=== PATIENT | male | born 1940 | race Caucasian/White ===

== ENCOUNTER → 2017-12-12 14:35 | Outpatient (CLI) | payer MEDICARE, OTHER, SELFPAY ==
[2017-12-12 15:43] LABS: Alanine Aminotransferase 51 IU/L (21-72); Albumin 4.6 g/dL (3.5-5.0); Albumin Globulin Ratio 1.4 (1.0-2.8); Alkaline Phosphatase 63 U/L (38-126); Aspartate Aminotransferase 47 IU/L (17-59); BUN Creatinine Ratio 31.1 (6-22); Bilirubin Total 1.1 mg/dL (0.2-1.3); Calcium 9.2 mg/dL (8.4-10.2); Estimated Glomerular Filt Rate > 60.0 mL/min (>60); Globulin 3.2 g/dL (1.7-4.1); Glucose 108 mg/dL (80-110); HEMOLYSIS < 15 (0-50); Potassium 4.3 mmol/L (3.4-5.1); Sodium 137 mmol/L (137-145); Total Protein 7.8 g/dL (6.3-8.2)
[2017-12-12 19:39] LABS: Add Manual Diff / Slide Review NO; Eosinophils Percent Auto 4.3 % (2-4); Hematocrit 47.1 % (41-53); Hemoglobin 15.9 g/dL (13.5-17.5); Lymphocytes Percent Auto 21.1 % (25-40); Mean Corpuscular HGB Conc 33.8 % (30-36); Mean Corpuscular Hemoglobin 28.7 PG (26-34); Monocytes Percent Auto 10.6 % (3-14); Neutrophils Absolute Auto 5200 /uL (3000-5900); Red Blood Cell Count 5.54 X10^6/uL (4.5-5.9); Red Cell Distribution Width 13.6 % (11.6-14.8); White Blood Cell Count 8.2 X10^3/uL (4.5-11.0)
[2017-12-12 19:47] LABS: Platelet Count 112 X10^3/uL (150-400)
== END ==
PROVIDERS: Family Provider Family Medicine; PCP Family Medicine; Visit Provider Internal Medicine Hematology & Oncology
DX: R91.1 Solitary pulmonary nodule (principal)
CPT/HCPCS: 36415; 80053; 85025

== ENCOUNTER → 2018-03-05 07:38 | Outpatient (CLI) | payer MEDICARE, OTHER, SELFPAY ==
[2018-03-05 08:40] LABS: BUN Creatinine Ratio 23.3 (6-22); Blood Urea Nitrogen 21 mg/dL (9-20); Estimated Glomerular Filt Rate > 60.0 mL/min (>60)
== END ==
PROVIDERS: PCP Family Medicine; Visit Provider Internal Medicine Hematology & Oncology
DX: R91.1 Solitary pulmonary nodule (principal); Z85.72 Personal history of non-Hodgkin lymphomas
CPT/HCPCS: 36415; 82565; 84520

== ENCOUNTER → 2018-03-06 07:50 | Outpatient (CLI) | payer MEDICARE, OTHER, SELFPAY ==
[2017-12-19 13:24] VITALS: TEMP 36.6
--- NOTE | 2018-03-06 08:19 | DI.CT.S_ITS ---
PROCEDURE: CT CHEST W CON INDICATIONS: HISTORY OF NON-HODGKINS LYMPHOMA TECHNIQUE: After the administration of intravenous contrast, 5 mm thick sections acquired from the pulmonary apices to the posterior costophrenic angles. 7 mm thick coronal and sagittal MIP reformats were acquired. For radiation dose reduction, the following was used: automated exposure control, adjustment of mA and/or kV according to patient size. COMPARISON: [facility], CR, CHEST 2 VIEW, 08/30/2017, 10:43. [facility], CT, CHEST/ABDOMEN WITHOUT CONTRAST, 11/19/2017, 14:15. [facility], NM, NM PET CT FUSION SKULL 2 THIGH, 12/12/2017, 15:59. FINDINGS: Image quality: Excellent. Lungs and pleura: Centrilobular and bullous emphysema is again noted. Multiple pulmonary nodules are reidentified bilaterally, these showing no abnormal tracer activity on prior pet imaging. The dominant nodule within the lingula is unchanged, measuring 9 mm in AP dimension. Other nodules including several in the right hemithorax are as previously described and measured, remaining unchanged. No new nodules are evident. No acute air space opacities. No pleural effusions or pneumothorax. Central and peripheral airways are patent and normal in caliber. Mediastinum: Heart size is normal. Coronary artery calcifications. No pericardial effusion. No mediastinal or hilar adenopathy by size criteria. Thoracic aorta and central pulmonary arteries are normal in size. Esophagus is normal in caliber. Small hiatal hernia. Bones and chest wall: Median sternotomy and CABG. No suspicious bony lesions. No vertebral body compression fractures. No axillary or supraclavicular adenopathy by size criteria. Thyroid gland appears normal in size. Abdomen: Visualized upper abdominal solid organs appear normal. Upper abdominal bowel loops are normal in caliber. Gallstone is present, no inflammatory changes. Generalized fatty infiltration of the liver. No adrenal nodules. IMPRESSION: 1. Moderately severe emphysema. 2. Multiple pulmonary nodules, benign by PET imaging remain unchanged in size from initial exam. Additional 6-[address] surveillance is recommended to exclude indolent neoplasms. 3. Atherosclerosis, cholelithiasis, hiatal hernia, atherosclerosis and hepatic steatosis again noted. Dictated by: José Miguel Turcios M.D. on 03/06/2018 at 8:45 Approved by: José Miguel Turcios M.D. on 03/06/2018 at 8:59
== END ==
PROVIDERS: Family Provider Family Medicine; PCP Family Medicine; Visit Provider Internal Medicine Hematology & Oncology
DX: R91.8 Other nonspecific abnormal finding of lung field (principal); Z85.72 Personal history of non-Hodgkin lymphomas; J43.9 Emphysema, unspecified; K44.9 Diaphragmatic hernia without obstruction or gangrene; K80.20 Calculus of gallbladder without cholecystitis without obstruction; K76.0 Fatty (change of) liver, not elsewhere classified; I25.10 Atherosclerotic heart disease of native coronary artery without angina pectoris
CPT/HCPCS: 71260; Q9967

== ENCOUNTER → 2018-03-25 07:11 | Outpatient (CLI) | payer MEDICARE, OTHER, SELFPAY ==
[2018-03-25 09:33] LABS: Cholesterol 119 mg/dL (140-199); HDL Cholesterol 44 mg/dL (40-60); LDL Cholesterol Calculated 47 mg/dL (<100); Triglycerides 141 mg/dL (35-150)
== END ==
PROVIDERS: PCP Family Medicine; Visit Provider Family Medicine
DX: E78.00 Pure hypercholesterolemia, unspecified (principal)
CPT/HCPCS: 36415; 80061

== ENCOUNTER → 2018-08-26 08:07 | Outpatient (CLI) | payer MEDICARE, OTHER, SELFPAY ==
--- NOTE | 2018-08-26 | DI.ECHO.S_ITS ---
[facility] +---------+ : : [address] : : : : [address] : : : : Phone: [phone] Echocardiogram Report + + :Name: MARLINE GOFF Study Date: 08/26/2018 Height: 73 in : :[facility] Exam Location: IS; Weight: 214 lb : : Gender: Male BSA: 2.2 m2 : :: 1940 Age: 78 yrs BP: 122/62 mmHg: :Reason For Study: CARDIOMYOPATHY : :Ordering Physician: Hattie : :Adin Aguirre Performed By: Estefania Rosa : :Referring: HATTIE STEWART : + + Interpretation Summary Normal sinus rhythm with occasional PVC's. Mildly dilated LV; there is limited endocardial visualization. only 7 out of 17 segments are visualized. There is basal anteroseptal, mid-anteroseptal and mid-anterior akinesis; mid-inferoseptal severe hypokinesis. There is basal inferolateral and mid-inferolateral hypokinesis. Best motion is demonstrated by mid-inferior segment, which is only mildly hypokinetic. Estimatedf EF is 30-35%. Stage II diastolic dysfunction. Mild LA enlargement; otherwise normal chamber sizes. No significant valvular abnormalities. Compared to prior study 05/07/2017 no significant changes have occurred. Procedure: A two-dimensional transthoracic echocardiogram with color flow and Doppler was performed. The study quality was technically adequate. Comparison is made with the echocardiogram of 05/07/17. There has been no significant change since the previous study. The patient was in normal sinus rhythm during the exam. The patient had occasional PVCs during the exam. Left Ventricle: The left ventricle is moderately dilated. There is normal left ventricular wall thickness. There is no thrombus. Left ventricular systolic function is severely reduced. Left ventricular ejection fraction is estimated to be 30 +/- 5%. Right Ventricle: The right ventricle is normal in size and function. Atria: The left atrium is moderately dilated. Right atrial size is normal. There is no Doppler evidence for an interatrial shunt. Mitral Valve: The mitral valve is normal. There is trace mitral regurgitation. Aortic Valve: The aortic valve is trileaflet. There is mild aortic valve sclerosis. The aortic valve opens well. There is no aortic regurgitation. Tricuspid Valve: The tricuspid valve is normal. There is trace tricuspid regurgitation. The right ventricular systolic pressure is estimated to be at least 25 mmHg based on an estimated right atrial pressure of 3 mm Hg. Pulmonic Valve: The pulmonic valve is not well seen, but is grossly normal. There is a trace or physiologic amount of pulmonic regurgitation. Great Vessels: The aortic root is normal size. The ascending aorta is normal in size. The aortic arch is normal in size. The pulmonary is not well visualized. The IVC is of normal diameter and collapses greater than 50% with a sniff. This suggests a low right atrial pressure of 3 mm Hg. Pericardium/ Pleura There is no pericardial effusion. There is no pleural effusion. MMode/2D Measurements & Calculations LVIDd: 6.5 cm LVOT diam: 2.5 cm LVIDs: 5.0 cm Ao root diam: 3.6 cm FS: 22.9 % asc Aorta Diam: 3.3 cm EPSS: 1.4 cm Ao Arch Diam (Prox Trans): 2.8 cm IVSd: 0.55 cm LVPWd: 0.93 cm LV raevalo. diameter/BSA (cm/m^2): 2.9 LV sys. diameter/BSA (cm/m^2): 2.3 LA A2 area: 24.7 cm2 RA long axis: 5.2 cm LA A4 area: 30.9 cm2 RA area: 19.5 cm2 LA length (vol): 6.3 cm RA vol: 62.6 ml LA vol: 103.3 ml RA : 28.3 ml/m2 LA vol index: 46.6 ml/m2 IVC diam: 1.3 cm RVD1 (basal): 4.5 cm RVD2 (mid): 3.6 cm TAPSE: 1.7 cm Doppler Measurements & Calculations Ao V2 max: 123.5 cm/sec LVOT Max Farzad: 64.2 cm/sec Ao V2 mean: 85.6 cm/sec LV V1 max P.7 mmHg Ao max P.1 mmHg LV V1 VTI: 14.0 cm Ao mean P.3 mmHg PANKAJ(I,D): 3.6 cm2 Ao V2 VTI: 19.9 cm PANKAJ(V,D): 2.6 cm2 sev ratio: 0.70 PANKAJ indexed to BSA (cm^2/m^2): 1.6 MV E max farzad: 84.0 cm/sec TR max farzad: 233.4 cm/sec MV A max farzad: 114.8 cm/sec TR max P.8 mmHg MV E/A: 0.73 PA V2 max: 86.7 cm/sec Med Peak E' Farzad: 5.5 cm/sec PA V2 mean: 58.5 cm/sec E/E' med: 15.3 PA mean P.5 mmHg Lat Peak E' Farzad: 10.4 cm/sec PA pr(Accel): 29.1 mmHg E/E' lat: 8.1 E/e' average: 11.7 MV dec time: 0.17 sec SV(LVOT): 70.9 ml Reading Physician:09:13 PM
== END ==
PROVIDERS: Family Provider Student in an Organized Health Care Education/Training Program; PCP Student in an Organized Health Care Education/Training Program; Visit Provider Hospitalist
DX: I35.8 Other nonrheumatic aortic valve disorders (principal); I42.9 Cardiomyopathy, unspecified; I49.3 Ventricular premature depolarization
CPT/HCPCS: 93306

== ENCOUNTER → 2018-09-13 08:49 | Outpatient (CLI) | payer MEDICARE, OTHER, SELFPAY ==
--- NOTE | 2018-09-20 15:31 | PM.PFT.1 ---
Pulmonary Function Test Referral & Results Date Patient Seen: 09/13/18 Requesting provider: Mayank Oakley Indication: [id number] Results: The spirometry demonstrates an FVC of 4.54 L which is 96% of predicted. The FEV1 was measured at 2.63 L which is 77% of predicted. The FEV1/FVC ratio was 58 which is 80% of predicted. Following the administration of bronchodilator there was a 26% improvement in FEF 25-75%. Lung volumes show an SVC of 4.54 L which is 92% of predicted. The diffusing capacity was measured at 19.05 which is 52% of predicted. No hemoglobin value was provided, so no correction for potential anemia could be made, if appropriate. The maximum voluntary ventilation was normal Interpretation: This study demonstrates perhaps mild obstructive lung disease based on reduction FEV1 and FEV1/FVC ratio. There was evidence of minimal improvements particularly in small airway flow after bronchodilator based on the improvement in FEF 25-75% There is also mild to moderate reduction in diffusing capacity suggesting an element of disease at the capillary alveolar level Clinical correlation suggested
== END ==
PROVIDERS: Family Provider Student in an Organized Health Care Education/Training Program; PCP Student in an Organized Health Care Education/Training Program; Visit Provider Hospitalist
DX: J43.9 Emphysema, unspecified (principal); R06.09 Other forms of dyspnea
CPT/HCPCS: 94060; 94726; 94729

== ENCOUNTER → 2018-10-28 10:51 | Outpatient (CLI) | payer MEDICARE, OTHER, SELFPAY ==
--- NOTE | 2018-10-28 10:57 | DI.CT.S_ITS ---
PROCEDURE: CT CHEST WO CON INDICATIONS: surveillance TECHNIQUE: Noncontrast 5 mm thick sections acquired from the pulmonary apices to the posterior costophrenic angles. 7 mm thick coronal and sagittal MIP reformats were then acquired. For radiation dose reduction, the following was used: automated exposure control, adjustment of mA and/or kV according to patient size. COMPARISON: Outside Facility, , CT THORAX/ABDOMEN/PELVIS WITH CONTRAST, 07/19/2015, 10:39. [facility], CT, CHEST/ABDOMEN WITHOUT CONTRAST, 11/19/2017, 14:15. [facility], CT, CT CHEST W CON, 03/06/2018, 8:03. FINDINGS: Image quality: Excellent. Lungs and pleura: No acute air space opacities. There is severe COPD with chronic interstitial prominence. Areas of scattered bullous emphysema can be seen. No pneumonia found. Previously present scattered pulmonary nodules bilaterally, right greater than left, are stable over time from the initial available comparison study describing these in detail 11/19/17. The largest nodule measures 9-10 mm lingular segment left upper lobe. No pleural effusions or pneumothorax. Central and peripheral airways are patent and normal in caliber. Mediastinum: Heart size is normal. No pericardial effusion. No mediastinal adenopathy by size criteria. Thoracic aorta and central pulmonary arteries are normal in size. Esophagus is normal in caliber. No hiatal hernia. Bones and chest wall: No suspicious bony lesions. No vertebral body compression fractures. No axillary or supraclavicular adenopathy by size criteria. Thyroid gland appears normal. Abdomen: Visualized upper abdominal solid organs and bowel loops appear normal in the absence of contrast. IMPRESSION: No globe changer time, severe COPD with interstitial prominence. Scattered pulmonary nodules are again seen, small in size and without globe changer time with the largest measuring approximately 9-10 mm lingular segment left upper lobe. Prior PET/CT scanning shows no abnormal isotope uptake, having been performed 12/12/17. The largest nodule, lingular segment, was also present on a comparison CT from [facility], dated 07/19/15. Overall, benign etiology such as old granulomatous disease is the likely cause. Depending on the clinical status and prior smoking history it may be warranted to enroll this patient in yearly low dose CT scanning without contrast for lung carcinoma screening. Dictated by: Jacoby Zamarripa M.D. on 10/28/2018 at 11:36 Approved by: Jacoby Zamarripa M.D. on 10/28/2018 at 11:46
[2018-10-28 11:11] LABS: Add Manual Diff / Slide Review NO; Basophils Absolute Auto 100 /uL (0-100); Basophils Percent Auto 0.9 % (0-2); Eosinophils Absolute Auto 300 /uL (0-450); Eosinophils Percent Auto 3.3 % (2-4); Hematocrit 48.2 % (41-53); Hemoglobin 16.2 g/dL (13.5-17.5); Lymphocytes Absolute Auto 1600 /uL (1100-4500); Lymphocytes Percent Auto 19.2 % (25-40); Mean Corpuscular HGB Conc 33.7 % (30-36); Mean Corpuscular Hemoglobin 29.2 PG (26-34); Mean Corpuscular Volume 86.7 fL (80-100); Monocytes Absolute Auto 900 /uL (0-900); Monocytes Percent Auto 10.3 % (3-14); Neutrophils Absolute Auto 5500 /uL (1500-7000); Neutrophils Percent Auto 66.3 % (50-75); Platelet Count 152 X10^3/uL (150-400); Red Blood Cell Count 5.57 X10^6/uL (4.5-5.9); Red Cell Distribution Width 13.4 % (11.6-14.8); White Blood Cell Count 8.3 X10^3/uL (4.5-11.0)
[2018-10-28 11:28] LABS: Alanine Aminotransferase 42 IU/L (21-72); Albumin 4.6 g/dL (3.5-5.0); Albumin Globulin Ratio 1.3 (1.0-2.8); Alkaline Phosphatase 57 U/L (38-126); Aspartate Aminotransferase 36 IU/L (17-59); BUN Creatinine Ratio 24.4 (6-22); Bilirubin Total 0.8 mg/dL (0.2-1.3); Blood Urea Nitrogen 22 mg/dL (9-20); Calcium 9.4 mg/dL (8.4-10.2); Carbon Dioxide 22 mmol/L (22-32); Chloride 105 mmol/L (98-107); Estimated Glomerular Filt Rate > 60.0 mL/min (>60); Globulin 3.6 g/dL (1.7-4.1); Glucose 116 mg/dL (80-110); HEMOLYSIS < 15 (0-50); Lactate Dehydrogenase 465 U/L (313-618); Potassium 4.1 mmol/L (3.4-5.1); Sodium 139 mmol/L (137-145); Total Protein 8.2 g/dL (6.3-8.2)
[2018-10-28 11:44] LABS: Free T4, Direct Thyroxine 1.42 ng/dL (0.78-2.19)
[2018-10-28 11:58] LABS: Thyroid Stimulating Hormone 1.53 uIU/mL (0.47-4.68)
== END ==
PROVIDERS: Internal Medicine; Internal Medicine Hematology & Oncology; Family Provider Student in an Organized Health Care Education/Training Program; PCP Student in an Organized Health Care Education/Training Program; Visit Provider Nurse Practitioner Gerontology
DX: R91.8 Other nonspecific abnormal finding of lung field (principal); J44.9 Chronic obstructive pulmonary disease, unspecified; E03.9 Hypothyroidism, unspecified
CPT/HCPCS: 36415; 71250; 80053; 83615; 84439; 84443; 85025; Q9967

== ENCOUNTER 2018-12-14 07:53 | Emergency (ER) | payer MEDICARE, OTHER, SELFPAY ==
[2018-12-14 08:24] VITALS: BP 149/69; PULSE 89; RESP 16; TEMP 36.9; O2SAT 93; BMI 28.3
--- NOTE | 2018-12-14 09:02 | ED_ITS ---
HPI - Neck Pain/Injury General Chief Complaint: Neck Pain/Injury Stated Complaint: States stiff neck x4days Time Seen by Provider: 12/14/18 08:25 Source: patient and family Mode of arrival: ambulatory Limitations: no limitations History of Present Illness HPI Narrative: Patient is a 78-year-old male who presents with neck pain ongoing for last 4 days. He states that he [place] in the [employer] [place] a while digging up a bu sh. He is right-handed however he injured his right hand and was actually using his left hand today got a todd. His neck has progressively gotten worse she did not fall. He has no numbness tingling in his hands or his face. He has significant decreased range of motion flexion extension and rotation. He was seen by his PCP yesterday he received a shot of Toradol and methocarbamol which he says has not helped him at all. He slept with a heating pad on his neck all night he did not get much sleep. MD complaint: neck pain Place: home Quality: spasming Duration: constant Relieving factors: none Related Data Home Medications Medication Instructions Recorded Confirmed losartan 50 mg PO QDAY #0 tab 06/08/16 12/13/18 metoprolol succinate ER 25 mg 25 mg PO DAILY 08/19/18 12/13/18 tablet,extended release 24 hr aspirin 81 mg tablet,delayed 81 mg PO DAILY 09/26/18 12/13/18 release Previous Rx's Medication Instructions Recorded atorvastatin 80 mg tablet 80 mg PO HS #90 tab 03/20/18 lorazepam 1 mg tablet 1 mg PO BID-TID PRN #90 tab 09/26/18 levothyroxine 200 mcg tablet 200 mcg PO QAM #90 tab 12/03/18 methocarbamol 500 mg tablet 500 mg PO QID PRN #10 tab 12/13/18 diazepam [Valium] 5 mg PO Q12HR PRN #10 tab 12/14/18 tramadol 50 mg PO Q6H PRN #10 tab 12/14/18 Allergies Allergy/AdvReac Type Severity Reaction Status Date / Time adhesive tape [ADHESIVE TAPE] Allergy Severe rash and Verified 12/14/18 08:23 open weeping sores nitroglycerin [NITROGLYCERIN] Allergy Severe tachacardia Verified 12/14/18 08:23 Sulfa (Sulfonamide Allergy Severe unknown Verified 12/14/18 08:23 Antibiotics) [SULFA (SULFONAMIDE ANTIBIOTICS)] meperidine [From DEMEROL] Allergy Unknown projectile Verified 12/14/18 08:23 vomiting Review of Systems Review of Systems ROS Unobtainable: All systems reviewed & are unremarkable except as noted in HPI and below Constitutional Denies chills, Denies fever(s), Denies lethargy and Denies weakness Eyes Denies change in vision, Denies eye discharge, Denies irritation and Denies loss of vision ENT Ears, Nose, Mouth, and Throat: Reports neck pain Cardiovascular Denies chest pain, Denies irregular heart rhythm, Denies lightheadedness, Denies palpitations, Denies dyspnea, Denies dyspnea on exertion and Denies orthopnea Respiratory Denies cough, Denies dyspnea, Denies dyspnea on exertion and Denies wheezing Gastrointestinal Gastrointestinal: Denies abdominal pain, Denies change in bowel habits, Denies diarrhea, Denies nausea and Denies vomiting Genitourinary Denies hematuria, Denies flank pain, Denies urinary incontinence and Denies urinary urgency Musculoskeletal Reports muscle cramps, Reports neck pain and Denies numbness Integumentary/Breasts Denies pruritus, Denies erythema, Denies rash and Denies wounds Neurologic Denies loss of vision, Denies numbness and Denies weakness Endocrine Denies palpitations Allergic/Immunologic Denies wheezing [facility] Medical History COPD (chronic obstructive pulmonary disease) (Chronic) Essential hypertension (Chronic 06/08/16) Coronary artery disease involving [place] coronary artery of [place] heart without angina pectoris (Chronic 06/08/16) Lung nodule (Acute 09/06/17) History of non-Hodgkin's lymphoma (Resolved 06/08/16) Pure hypercholesterolemia (Chronic 06/08/16) Acquired hypothyroidism (Chronic 06/08/16) Primary insomnia (Chronic 06/08/16) Social History Smoking Status: Former smoker Social History Smoking Status: Former smoker Exam Initial Vital Signs Initial Vital Signs: Vital Signs Temperature 98.4 F 12/14/18 08:24 Pulse Rate 89 12/14/18 08:24 Respiratory Rate 16 12/14/18 08:24 Blood Pressure 149/69 H 12/14/18 08:24 Pulse Oximetry 93 12/14/18 08:24 GENERAL: Well-appearing, well-nourished and in no acute distress. NECK: Significant tenderness C1 through C5 for. Significant decreased range of motion flexion extension and rotation. Extremely tender to touch. CARDIOVASCULAR: peripheral pulses in tact, cap refill <2 sec RESPIRATORY: No respiratory distress, speaks in full sentences without difficulty EXTREMITIES: Normal range of motion, no clubbing or edema. Neurovascularly intact NEUROLOGICAL: Cranial nerves II through XII grossly intact. Normal gait and speech. pigment presser strength is equal bilaterally. sensation to soft touch equal bilaterally SKIN: Warm, dry, no petechiae, no rashes or lesions. Course Orders Ordered: Discontinued Medications Diazepam (Valium) 10 mg PO NOW ONE Stop: 12/14/18 09:03 Last Admin: 12/14/18 09:33 Dose: 10 mg Ketorolac Tromethamine (Toradol) 30 mg IM NOW ONE Stop: 12/14/18 09:03 Last Admin: 12/14/18 09:30 Dose: 30 mg Vital Signs - 8 hr 12/14/18 08:24 12/14/18 10:15 Temperature 98.4 F Pulse Rate 89 86 Respiratory Rate 16 16 Blood Pressure 149/69 H Blood Pressure [Right Arm] 115/71 Pulse Oximetry 93 94 MDM - Neck Pain/Injury MDM Narrative Medical decision making narrative: Patient denies any fall, pain is reproducible to palpation movement. He has no neurovascular deficits or weaknesses. I was able to do some myofascial release and trigger point release for him which did help some. He did not want any strong narcotics he does not like the way it makes him feel. He got a little relief with the Valium will switch is methocarbamol to Valium instead. Overall feeling better. Discharge Plan Departure Patient Disposition: Home Clinical Impression: Cervical paraspinal muscle spasm Strain of neck muscle Qualifiers: Encounter type: initial encounter Qualified Code(s): S16.1XXA - Strain of muscle, fascia and tendon at neck level, initial encounter Discharge Date/Time: 12/14/18 10:42 Interventions: ED Discharge Assessment Last Done: 12/14/18 10:42 Instructions: Neck Sprain, DI for Muscle Spasm Activity Restrictions/Additional Instructions: *You have been diagnosed with cervical muscle strain/muscle spasm *What to do: Increased movement as tolerated try some light stretching activities as tolerated. Heating pad. *Continue to take medications as directed -->Stop taking methocarbamol Tramadol 1 tablet every 6 hours needed for severe pain Ibuprofen 600 mg every 6-8 hours if needed for moderate pain Valium 5 mg every 12 hours if needed for muscle spasm *Follow up with your primary care provider in 2-3 days *Return to ER if you should have numbness tingling weakness in hand or face or any new, worsening or concerning symptoms CONTROLLED SUBSTANCE DISCHARGE (Narcotoic/benzodiazepine/Flexeril/Phenergan) 1. You have been prescribed narcotic medications, it does have acetaminophen/Tylenol/paracetamol in it so do not take extra Tylenol or Tylenol containing products TRAMADOL DOES NOT CONTAIN TYLENOL 2. Please understand that we cannot provide further refills of narcotics, benzodiazepines or controlled substances through the ED and her pain management will need to be through your provider. 3. While on these medications you cannot drive or operate heavy machinery. 4. You cannot sign legal documents or perform any duties such as this. 5. As long as you're taking opiate pain medications he should also be taking a stool softener such as Colace, Dulcolax, MiraLAX or prune juice, to help avoid constipation. Prescriptions: New tramadol 50 mg tablet 50 mg PO Q6H PRN (Reason: pain) Qty: 10 RF: 0 diazepam [Valium] 5 mg tablet 5 mg PO Q12HR PRN (Reason: muscle spasm) Qty: 10 RF: 0 No Action methocarbamol 500 mg tablet 500 mg PO QID PRN (Reason: muscle spasm) Qty: 10 RF: 0 losartan 50 MG tablet 50 mg PO QDAY Qty: 0 RF: 0 atorvastatin [Lipitor] 80 mg tablet 80 mg PO HS Qty: 90 RF: 2 metoprolol succinate 25 mg tablet extended release 24 hr 25 mg PO DAILY RF: 0 levothyroxine 200 mcg tablet 200 mcg PO QAM Qty: 90 RF: 1 aspirin 81 mg tablet,delayed release (DR/EC) 81 mg PO DAILY RF: 0 lorazepam 1 mg tablet 1 mg PO BID-TID PRN (Reason: dizziness) Qty: 90 RF: 2 Referrals: Tj Murphy MD [Primary Care Provider] -
[2018-12-14] MEDS: KETOROLAC 60 MG/2 ML VIAL 30 MG IM (09:30)
[2018-12-14] MEDS: diazePAM 5 MG TABLET 10 MG PO (09:33)
[2018-12-14 10:15] VITALS: BP 115/71; PULSE 86; RESP 16; O2SAT 94
--- NOTE | 2018-12-14 10:16 | PC.NURSE ---
pt reports improvement, more relaxed and pain level decrease.
== END 2018-12-14 10:42 | disposition home or self-care (01) ==
PROVIDERS: Emergency Provider Emergency Medicine; Family Provider Student in an Organized Health Care Education/Training Program; PCP Internal Medicine
DX: S16.1XXA Strain of muscle, fascia and tendon at neck level, initial encounter (principal)
CPT/HCPCS: 96372; 99282; 99283; J1885

== ENCOUNTER → 2019-02-03 08:33 | Outpatient (CLI) | payer MEDICARE, OTHER, SELFPAY ==
--- NOTE | 2019-02-03 | DI.MRI.S_ITS ---
PROCEDURE: MR ELBOW RT WO CON INDICATIONS: Strain of muscle, fascia and tendon TECHNIQUE: Axial and sagittal MR imaging of the right elbow was performed. COMPARISON: None. FINDINGS: Image quality: Limited, as coronal imaging was not able to be obtained. There also is motion artifact. Lateral structures: The lateral elbow ligaments are not adequately evaluated without coronal imaging. The common extensor tendon origin is also not adequately evaluated without coronal imaging, but appears to demonstrate increased signal. Medial structures: The ulnar collateral ligament is not adequately evaluated without coronal imaging. The overlying common flexor tendon is not adequately evaluated, but appears to be within normal limits. The ulnar nerve appears normal in size and signal within the cubital tunnel. Anterior structures: The brachialis tendon is intact and otherwise unremarkable. The distal biceps tendon demonstrates thickening and increased signal at its insertion onto the radial tuberosity. No bicipitoradial bursal fluid. The median and radial neurovascular bundles appear normal; no focal muscle atrophy to suggest nerve impingement. Posterior structures: The conjoint triceps tendon from the long and lateral heads appears intact. The medial head of the triceps tendon also appears normal, with direct muscle insertion onto the olecranon. No olecranon bursal fluid. Bone: No acute fracture, dislocation, or suspicious osseous lesion is evident. No significant degenerative changes are identified. There is no joint effusion. IMPRESSION: 1. Coronal imaging was unable to be obtained related to a scanner error, limiting the evaluation of the elbow. This particularly limits evaluation of the medial and lateral elbow ligaments and tendons. If there is clinical concern for pathology involving the structures, please send the patient back for additional imaging at no cost to the patient. 2. Biceps tendinopathy without significant tearing. Dictated by: Thong Baxter M.D. on 02/03/2019 at 13:50 Approved by: Thong Baxter M.D. on 02/03/2019 at 13:58
== END ==
PROVIDERS: PCP Internal Medicine; Visit Provider Orthopaedic Surgery
DX: S46.211A Strain of muscle, fascia and tendon of other parts of biceps, right arm, initial encounter (principal)
CPT/HCPCS: 73221

== ENCOUNTER → 2019-03-25 07:52 | Outpatient (CLI) | payer MEDICARE, OTHER, SELFPAY ==
[2019-03-25 10:00] LABS: BUN Creatinine Ratio 24.4 (6-22); Blood Urea Nitrogen 22 mg/dL (9-20); Calcium 9.4 mg/dL (8.4-10.2); Carbon Dioxide 25 mmol/L (22-32); Chloride 101 mmol/L (98-107); Estimated Glomerular Filt Rate > 60.0 mL/min (>60); Glucose 150 mg/dL (80-110); HEMOLYSIS < 15 (0-50); Potassium 4.3 mmol/L (3.4-5.1); Sodium 137 mmol/L (137-145)
== END ==
PROVIDERS: Family Provider Internal Medicine; PCP Internal Medicine; Visit Provider Hospitalist
DX: I25.5 Ischemic cardiomyopathy (principal)
CPT/HCPCS: 36415; 80048

== ENCOUNTER → 2019-07-22 11:21 | Outpatient (CLI) | payer MEDICARE, OTHER, SELFPAY ==
[2019-07-22 12:31] LABS: BUN Creatinine Ratio 27.8 (6-22); Blood Urea Nitrogen 25 mg/dL (9-20); Calcium 9.6 mg/dL (8.4-10.2); Carbon Dioxide 26 mmol/L (22-32); Chloride 103 mmol/L (98-107); Cholesterol 146 mg/dL (140-199); Estimated Glomerular Filt Rate > 60.0 mL/min (>60); Glucose 111 mg/dL (80-110); HDL Cholesterol 40 mg/dL (40-60); HEMOLYSIS < 15 (0-50); LDL Cholesterol Calculated 60 mg/dL (<100); Potassium 4.1 mmol/L (3.4-5.1); Sodium 139 mmol/L (137-145); Triglycerides 232 mg/dL (35-150)
== END ==
PROVIDERS: PCP Internal Medicine; Visit Provider Hospitalist
DX: I25.10 Atherosclerotic heart disease of native coronary artery without angina pectoris (principal); I25.5 Ischemic cardiomyopathy; Z95.1 Presence of aortocoronary bypass graft
CPT/HCPCS: 36415; 80048; 80061

== ENCOUNTER → 2020-03-04 11:17 | Outpatient (CLI) | payer MEDICARE, OTHER, SELFPAY ==
[2020-03-04 11:46] LABS: Add Manual Diff / Slide Review NO; Basophils Absolute Auto 100 /uL (0-100); Basophils Percent Auto 0.7 % (0-2); Eosinophils Absolute Auto 200 /uL (0-450); Eosinophils Percent Auto 3.1 % (2-4); Hemoglobin 15.4 g/dL (13.5-17.5); Lymphocytes Absolute Auto 1600 /uL (1100-4500); Lymphocytes Percent Auto 22.4 % (25-40); Mean Corpuscular HGB Conc 34.2 % (30-36); Mean Corpuscular Volume 84.9 fL (80-100); Monocytes Absolute Auto 800 /uL (0-900); Monocytes Percent Auto 10.4 % (3-14); Neutrophils Absolute Auto 4700 /uL (1500-7000); Neutrophils Percent Auto 63.4 % (50-75); Platelet Count 150 X10^3/uL (150-400); Red Cell Distribution Width 13.9 % (11.6-14.8); White Blood Cell Count 7.4 X10^3/uL (4.5-11.0)
[2020-03-04 12:24] LABS: Alanine Aminotransferase 39 IU/L (<50); Albumin 4.4 g/dL (3.5-5.0); Albumin Globulin Ratio 1.4 (1.0-2.8); Alkaline Phosphatase 56 U/L (38-126); Aspartate Aminotransferase 39 IU/L (17-59); BUN Creatinine Ratio 25.3 (6-22); Bilirubin Total 0.8 mg/dL (0.2-1.3); Blood Urea Nitrogen 23 mg/dL (9-20); Calcium 9.7 mg/dL (8.4-10.2); Carbon Dioxide 23 mmol/L (22-32); Chloride 105 mmol/L (98-107); Estimated Glomerular Filt Rate > 60.0 mL/min (>60); Globulin 3.1 g/dL (1.7-4.1); Glucose 126 mg/dL (80-110); HEMOLYSIS < 15 (0-50); Lactate Dehydrogenase 428 U/L (313-618); Potassium 4.2 mmol/L (3.4-5.1); Sodium 136 mmol/L (137-145); Total Protein 7.5 g/dL (6.3-8.2)
[2020-03-04 12:53] LABS: Thyroid Stimulating Hormone 1.02 uIU/mL (0.47-4.68)
== END ==
PROVIDERS: Internal Medicine; PCP Internal Medicine; Referring Provider Internal Medicine; Visit Provider Internal Medicine
DX: E03.9 Hypothyroidism, unspecified (principal); C83.30 Diffuse large B-cell lymphoma, unspecified site
CPT/HCPCS: 36415; 80053; 83615; 84439; 84443; 85025

== ENCOUNTER → 2020-05-04 15:36 | Outpatient (CLI) | payer MEDICARE, OTHER, SELFPAY ==
--- NOTE | 2020-05-04 | DI.ECHO.S_ITS ---
[facility]---------+ [facility] +---------+ : : [address] [address] : : : : [phone] : : : : Phone: [phone]+ Echocardiogram Report + + :Name: MARLINE GOFF Study Date: 05/04/2020 Height: 73 in : :[facility] Weight: 216 lb : : Gender: Male BSA: 2.2 m2 : :: 1940 Age: 80 yrs BP: 140/76 mmHg: :Reason For Study: Cardiomyopathy, Ischemic : :Ordering Physician: Hattie : :Adin Aguirre Performed By: Rachel Cavanaugh : :Referring: HATTIE STEWART : + + Interpretation Summary 1) Mildly enlarged LV with severely reduced systolic function (EF 25-30%). 2) Septum extending to the entire apical cap are akinetic. Rest of the LV is hypokinetic. 3) Normal right ventricular size and function. 4) No significant valvular abnormalities. 5) Compared to the Echo done 08/26/2018, no significant change. Procedure: A two-dimensional transthoracic echocardiogram with color flow and Doppler was performed. The study quality was technically difficult. A contrast injection of Definity was performed to improve assessment of LV function. The patient was in sinus rhythm with heart rates between 57-62 bpm during the exam. Left Ventricle: There is normal left ventricular wall thickness. The left ventricle is mildly dilated. The ejection fraction is estimated to be 25-30%. Septum extending to the entire apical cap are akinetic. Rest of the LV is hypokinetic. Diastolic parameters suggest a relaxation abnormality of the left ventricle, consistent with probable normal filling pressures. Right Ventricle: The right ventricle is normal in size and function. Atria: The left atrium is moderately dilated. Right atrial size is normal. There is no Doppler evidence for an interatrial shunt. Mitral Valve: The mitral valve is normal in structure and function. There is mild mitral annular calcification. There is no mitral regurgitation noted. Aortic Valve: The aortic valve is trileaflet. The aortic valve opens well. There is no aortic valve stenosis. No aortic regurgitation is present. Tricuspid Valve: The tricuspid valve is normal in structure and function. Pulmonary artery pressures cannot be estimated because of the lack of a measurable TR jet velocity but the IVC suggests a CVP of around 3 mmHg. There is trace tricuspid regurgitation. Pulmonic Valve: The pulmonic valve is not well visualized. There is no pulmonic valvular regurgitation. Great Vessels: The aortic root is normal size. The dimensions of the ascending aorta are normal. The IVC is of normal diameter and collapses greater than 50% with a sniff. This suggests a low right atrial pressure of 3 mm Hg. Pericardium/ Pleura There is no pericardial effusion. There is no pleural effusion. MMode/2D Measurements & Calculations LVIDd: 6.0 cm LVOT diam: 2.4 cm LVIDs: 5.3 cm Ao root diam: 3.5 cm FS: 12.3 % asc Aorta Diam: 3.3 cm EPSS: 1.8 cm Ao Arch Diam (Prox Trans): 3.2 cm IVSd: 0.81 cm LVPWd: 0.84 cm LV arevalo. diameter/BSA (cm/m^2): 2.7 LV sys. diameter/BSA (cm/m^2): 2.4 LA A2 area: 24.5 cm2 RA long axis: 5.4 cm LA A4 area: 21.5 cm2 RA area: 19.0 cm2 LA length (vol): 5.5 cm RA vol: 56.8 ml LA vol: 81.9 ml RA : 25.6 ml/m2 LA vol index: 36.8 ml/m2 IVC diam: 1.1 cm RVD1 (basal): 3.7 cm TAPSE: 1.8 cm Doppler Measurements & Calculations Ao V2 max: 131.0 cm/sec LVOT Max Farzad: 91.0 cm/sec Ao V2 mean: 94.0 cm/sec LV V1 max P.3 mmHg Ao max P.9 mmHg LV V1 VTI: 20.6 cm Ao mean P.9 mmHg PANKAJ(I,D): 2.8 cm2 Ao V2 VTI: 32.9 cm PANKAJ(V,D): 3.1 cm2 sev ratio: 0.63 PANKAJ indexed to BSA (cm^2/m^2): 1.3 MV E max farzad: 53.5 cm/sec PA V2 max: 110.0 cm/sec MV A max farzad: 110.6 cm/sec PA V2 mean: 68.7 cm/sec MV E/A: 0.48 PA mean P.3 mmHg Med Peak E' Farzad: 4.1 cm/sec PA pr(Accel): 41.3 mmHg E/E' med: 12.9 Lat Peak E' Farzad: 9.8 cm/sec E/E' lat: 5.4 E/e' average: 9.2 MV dec time: 0.28 sec SV(OT): 93.1 ml Reading Physician:02:57 PM
== END ==
PROVIDERS: PCP Internal Medicine; Referring Provider Hospitalist; Visit Provider Hospitalist
DX: I25.5 Ischemic cardiomyopathy (principal)
CPT/HCPCS: C8929; Q9957

== ENCOUNTER 2020-11-16 15:42 | Emergency (ER) | payer MEDICARE, OTHER, SELFPAY ==
[2020-11-16 15:43] VITALS: BP 165/79; PULSE 63; RESP 14; TEMP 36.8; O2SAT 97; BMI 28.6
--- NOTE | 2020-11-16 15:48 | DI.RAD.S_ITS ---
PROCEDURE: XR ANKLE RT MIN 3V INDICATIONS: rolled right ankle TECHNIQUE: Three views of the ankle were acquired. COMPARISON: None. FINDINGS: Bones: No fractures or dislocations. Ankle mortise is normally aligned. No suspicious bony lesions. Soft tissues: No tibiotalar joint effusion. Achilles tendon appears normal. IMPRESSION: Intact right ankle. Dictated by: Danielle Guardado M.D. on 11/16/2020 at 15:12 Approved by: Danielle Guardado M.D. on 11/16/2020 at 15:13
--- NOTE | 2020-11-16 19:25 | ED.LOWEXIN ---
HPI - Extremity Injury (Lower) General Chief Complaint: Extremity Injury, Lower Stated Complaint: pain, rt ankle injury Time Seen by Provider: 11/16/20 19:25 Source: patient Mode of arrival: Ambulatory Limitations: no limitations History of Present Illness HPI Narrative: Patient is a 80-year-old male with history of coronary artery disease who presents with right ankle pain. It started yesterday after walking through a neighbor's yd who had if leg stone in gravel. He said when the leg stone was not stable and it rolled and he rolled his ankle. He has been able to walk on it but it does hurt. He has some swelling over his right malleoli. He has been elevating and icing and using an Ok wrap and even ibuprofen. He denies any numbness tingling or weakness no knee pain or other injury. Related Data Home Medications Medication Instructions Recorded Confirmed aspirin 81 mg tablet,delayed 81 mg PO DAILY 09/26/18 03/08/20 release losartan 50 mg PO BID 02/17/20 03/08/20 metoprolol succinate 25 mg 25 mg PO BID tab 03/08/20 03/08/20 tablet,extended release 24 hr Previous Rx's Medication Instructions Recorded levothyroxine 200 mcg tablet 200 mcg PO DAILY #90 tab 05/24/20 lorazepam 1 mg tablet 1 mg PO TID PRN #90 tab 10/07/20 atorvastatin 80 mg tablet 80 mg PO HS #90 tab 10/12/20 Allergies Allergy/AdvReac Type Severity Reaction Status Date / Time adhesive tape [ADHESIVE TAPE] Allergy Severe rash and Verified 11/16/20 15:45 open weeping sores nitroglycerin [NITROGLYCERIN] Allergy Severe tachacardia Verified 11/16/20 15:45 Sulfa (Sulfonamide Allergy Severe unknown Verified 11/16/20 15:45 Antibiotics) [SULFA (SULFONAMIDE ANTIBIOTICS)] meperidine [From DEMEROL] Allergy Unknown projectile Verified 11/16/20 15:45 vomiting Review of Systems Review of Systems Narrative: GENERAL: Denies chills,fever HEENT: Denies throat pain RESPIRATORY: Denies dyspnea, cough, wheezing CARDIOVASCULAR: Denies chest pain, palpitations GASTROINTESTINAL: Denies nausea, vomiting MUSCULOSKELETAL: See HPI SKIN: No rash, no laceration, no pruritus NEUROLOGIC: Denies weakness, dizziness, headache, numbness 8 point review of systems is negative except for those stated above and HPI Patient History Medical History Acquired hypothyroidism (06/08/16) COPD (chronic obstructive pulmonary disease) Coronary artery disease involving [place] coronary artery of [place] heart without angina pectoris (06/08/16) Essential hypertension (06/08/16) History of non-Hodgkin's lymphoma (06/08/16) Lung nodule (09/06/17) Primary insomnia (06/08/16) Pure hypercholesterolemia (06/08/16) Social History Smoking Status: Former smoker Smoking Status: Former smoker alcohol intake frequency: 0-2 drinks per day Substance Use Type: does not use Exam Initial Vital Signs Initial Vital Signs: Vital Signs Temperature 98.3 F 11/16/20 15:43 Pulse Rate 63 11/16/20 15:43 Respiratory Rate 14 11/16/20 15:43 Blood Pressure 165/79 H 11/16/20 15:43 Pulse Oximetry 97 11/16/20 15:43 GENERAL: Alert pleasant 80-year-old male sitting in wheelchair CARDIOVASCULAR: peripheral pulses in tact, cap refill <2 sec RESPIRATORY: No respiratory distress, speaks in full sentences without difficulty EXTREMITIES: Normal range of motion, no clubbing or edema. Neurovascularly intact Right lower extremity swelling over right lateral malleoli distal pedal pulse intact Achilles intact no foot pain. No knee pain or fibular head pain NEUROLOGICAL: Cranial nerves II through XII grossly intact. Normal gait and speech. SKIN: Warm, dry, no petechiae, no rashes or lesions. Course Orders Ordered: ED Orders 11/16/20 15:48 XR ankle RT min 3V Stat Vital Signs Vital signs: Vital Signs - 8 hr 11/16/20 15:43 Temperature 98.3 F Pulse Rate 63 Respiratory Rate 14 Blood Pressure 165/79 H Pulse Oximetry 97 MDM - Extremity Injury (Lower) Imaging Data Extremity x-ray #1: Radiologist's Impression: PROCEDURE: XR ANKLE RT MIN 3V INDICATIONS: rolled right ankle TECHNIQUE: Three views of the ankle were acquired. COMPARISON: None. FINDINGS: Bones: No fractures or dislocations. Ankle mortise is normally aligned. No suspicious bony lesions. Soft tissues: No tibiotalar joint effusion. Achilles tendon appears normal. IMPRESSION: Intact right ankle. Dictated by: Danielle Guardado M.D. on 11/16/2020 at 15:12 Approved by: Danielle Guardado M.D. on 11/16/2020 at 15:13 Discharge Plan Departure Patient Disposition: Home Clinical Impression: Right ankle sprain Qualifiers: Encounter type: initial encounter Involved ligament of ankle: other ligament Qualified Code(s): S93.491A - Sprain of other ligament of right ankle, initial encounter Instructions: Ankle Sprain Activity Restrictions/Additional Instructions: *You have been diagnosed with right ankle sprain *What to do: At this time increase activity as tolerated may use cane crutch to help with walking. Elevate, ice 20-30 minutes at a time. Use Ok wrap if it seems to help *Continue to take medications as directed Ibuprofen 600 mg every 6-8 hours if needed for [id number] pain *Follow up with your primary care provider in 2-3 days *Return to ER if you should have increasing pain numbness or tingling or any new, worsening or concerning symptoms Prescriptions: No Action metoprolol succinate 25 mg tablet extended release 24 hr 25 mg PO BID RF: 0 levothyroxine 200 mcg tablet 200 mcg PO DAILY Qty: 90 RF: 1 lorazepam 1 mg tablet 1 mg PO TID PRN (Reason: dizziness or vertigo) Qty: 90 RF: 1 atorvastatin [Lipitor] 80 mg tablet 80 mg PO HS Qty: 90 RF: 1 aspirin 81 mg tablet,delayed release (DR/EC) 81 mg PO DAILY RF: 0 losartan 50 mg tablet 50 mg PO BID RF: 0 Referrals: Tj Murphy MD [Primary Care Provider] -
[2020-11-16 19:47] VITALS: BP 147/70; PULSE 59; O2SAT 97
== END 2020-11-16 19:48 | disposition home or self-care (01) ==
PROVIDERS: Emergency Provider Emergency Medicine; PCP Internal Medicine; Referring Provider Internal Medicine
DX: S93.491A Sprain of other ligament of right ankle, initial encounter (principal); W01.0XXA Fall on same level from slipping, tripping and stumbling without subsequent striking against object, initial encounter
CPT/HCPCS: 73610; 99281; 99283

== ENCOUNTER → 2021-06-13 09:30 | Outpatient (CLI) | payer MEDICARE, OTHER, SELFPAY ==
[2021-06-13 10:23] LABS: Hemoglobin A1C% w Est Avg Glu 6.1 % (4.0-6.0)
[2021-06-13 11:06] LABS: BUN Creatinine Ratio 25.8 (6-22); Blood Urea Nitrogen 24 mg/dL (9-20); Calcium 9.7 mg/dL (8.4-10.2); Carbon Dioxide 27 mmol/L (22-32); Chloride 102 mmol/L (98-107); Estimated Glomerular Filt Rate > 60.0 mL/min (>60); Glucose 118 mg/dL (80-110); HEMOLYSIS < 15 (0-50); Potassium 4.3 mmol/L (3.4-5.1); Sodium 140 mmol/L (137-145)
== END ==
PROVIDERS: PCP Internal Medicine; Referring Provider Internal Medicine; Visit Provider Internal Medicine
DX: C83.30 Diffuse large B-cell lymphoma, unspecified site (principal); R73.9 Hyperglycemia, unspecified; J44.9 Chronic obstructive pulmonary disease, unspecified
CPT/HCPCS: 36415; 80048; 83036

== ENCOUNTER → 2021-10-24 09:19 | Outpatient (CLI) | payer MEDICARE, OTHER, SELFPAY ==
[2021-10-24 12:37] LABS: COVID19 -Nasal RAPID Negative (Negative)
== END ==
PROVIDERS: PCP Internal Medicine; Visit Provider Family Medicine Sleep Medicine
DX: Z20.822 Contact with and (suspected) exposure to COVID-19 (principal)
CPT/HCPCS: 87635; C9803

== ENCOUNTER → 2021-10-26 08:29 | Outpatient (CLI) | payer MEDICARE, OTHER, SELFPAY ==
--- NOTE | 2021-10-26 | DI.NM.S_ITS ---
PROCEDURE: NM BLAS PERF SPECT R&S PHARM Rest and pharmacological stress myocardial perfusion SPECT with gated imaging and ejection fraction RADIOPHARMACEUTICAL: 11.9 mCi Tc-99m tetrafosmin IV at rest and 25.6 mCi Tc-99m tetrafosmin IV at peak effect of pharmacological stress. Gzs-ron-dhafuhlu was performed. INDICATIONS: Essential (primary) hypertension TECHNIQUE: Radiopharmaceutical was injected at peak stress test, and also at rest. SPECT images were obtained. SPECT myocardial perfusion images were displayed in short axis, horizontal long axis, and vertical long axis views. Gated images were reviewed using Zencoder software. COMPARISON: None. CARDIAC STRESS: A pharmacologic stress test was performed under the supervision of an attending staff, using an infusion of lexiscan 0.4mg IV X1. Hemodynamic data: There is normal blood pressure and heart rate response to pharmacologic stress. Symptoms: The patient denied anginal chest pain. Aminophylline: none EKG: Sinus rhythm with LBBB. Non-diagnostic ECG with lexiscan due to LBBB. Rare PVCs.. FINDINGS: Raw data: There is good myocardial uptake of radiotracer. No significant motion artifacts. Left ventricle function: Gated images demonstrate septal dyskinesis and apical cap akinesis. The inferior wall is severely hypokinetic. Distal anterior wall is hypokinetic. The basal to distal lateral wall has normal wall motion. No transient ischemic dilation; TID is 1.12 (normal less than 1.3). Left ventricle resting end diastolic volume is 212 mL. Left ventricle stress ejection fraction is 31%; normal range is above 45%. Myocardial perfusion: Severe fixed defects in the inferior wall, anterior wall, inferolateral wall and apical cap consistent with prior transmural infarction. Moderately intense fixed septal defect consistent with prior non-transmural infarction. The anterolateral wall has normal wall motion. No ischemia. No prone images obtained due to patient unable to lay on his stomach. IMPRESSION: Abnormal pharmaceutical nuclear stress test consistent with prior infarction. No ischemia. 1) Severe fixed defects in the inferior wall, anterior wall, inferolateral wall and apical cap consistent with prior transmural infarction. Moderately intense fixed septal defect consistent with prior non-transmural infarction. The anterolateral wall has normal wall motion. No ischemia. No prone images obtained due to patient unable to lay on his stomach. 2) Dilated left ventricle (resting EDV 212cc) with moderately severely reduced systolic function (EF post stress 31%). 3) ECG non-diagnostic due to baseline LBBB. 4) No angina during the study. 5) Compared to the nuclear stress test 01/01/2022, no significant change. Dictated by: Alex Van MD on 10/26/2021 at 16:29 Approved by: Alex Van MD on 10/26/2021 at 16:38
--- NOTE | 2021-10-26 | DI.ECHO.S_ITS ---
[facility] +---------+ [facility] +---------+ : : [address] : [address] [address] : : : : [phone] : : : : Phone: [phone]---------+ Echocardiogram Report + + :Name: MARLINE GOFF Study Date: 10/26/2021 Height: 73 in : :[facility] ReadingLocation: Weight: 217 lb : : Gender: Male BSA: 2.2 m2 : :: 1940 Age: 81 yrs BP: 133/76 mmHg: :Reason For Study: HYPERTENSION : :Ordering Physician: FEI, : :LEEANN Gilman Performed By: Rachel Cavanaugh : :Referring: LEEANN MORENO : + + Interpretation Summary The left ventricle is mild-moderately dilated. The ejection fraction is estimated to be 15-20%. The septum, inferior wall and apex are akinetic. The remaining fletcher are hypokinetic. Right ventricular systolic function is mildly reduced. The left atrium is mildly dilated. No significant valvular abnormalities. Pulmonary artery pressures cannot be estimated because of the lack of a measurable TR jet velocity. Compared to the prior study dated 05/04/2020, the LVEF has decreased. Procedure: A two-dimensional transthoracic echocardiogram with color flow and Doppler was performed. The study quality was technically difficult. A contrast injection of Definity was performed to improve assessment of LV function. Comparison is made with the echocardiogram of 05/04/2020. The patient was in sinus rhythm with heart rates between 55-70 bpm during the exam. Left Ventricle: There is normal left ventricular wall thickness. The left ventricle is mild-moderately dilated. The ejection fraction is estimated to be 15-20%. The septum, inferior wall and apex are akinetic. The remaining fletcher are hypokinetic. Grade I diastolic dysfunction. Right Ventricle: The right ventricle is normal size. Right ventricular systolic function is mildly reduced. Atria: The left atrium is mildly dilated. Right atrial size is normal. There is no Doppler evidence for an interatrial shunt. Mitral Valve: The mitral valve is normal in structure and function. There is trace mitral regurgitation. Aortic Valve: The aortic valve is not well visualized. The aortic valve opens well. There is no aortic valve stenosis. No aortic regurgitation is present. Tricuspid Valve: The tricuspid valve is normal in structure and function. There is trace tricuspid regurgitation. Pulmonary artery pressures cannot be estimated because of the lack of a measurable TR jet velocity. Pulmonic Valve: The pulmonic valve leaflets are thin and pliable; valve motion is normal. There is a trace or physiologic amount of pulmonic regurgitation. Great Vessels: The aortic root is normal size. The dimensions of the ascending aorta are normal. The IVC is of normal diameter and collapses greater than 50% with a sniff. This suggests a low right atrial pressure of 3 mm Hg. Pericardium/ Pleura There is no pericardial effusion. There is no pleural effusion. MMode/2D Measurements & Calculations LVIDd: 5.4 cm LVOT diam: 2.6 cm LVIDs: 4.9 cm Ao root diam: 3.3 cm FS: 9.4 % asc Aorta Diam: 3.2 cm IVSd: 0.82 cm Ao Arch Diam (Prox Trans): 3.2 cm LVPWd: 1.0 cm LV arevalo. diameter/BSA (cm/m^2): 2.4 LV sys. diameter/BSA (cm/m^2): 2.2 LA A2 area: 26.9 cm2 RA long axis: 6.0 cm LA A4 area: 23.1 cm2 RA area: 20.0 cm2 LA length (vol): 5.9 cm RA vol: 56.8 ml LA vol: 89.4 ml RA : 25.5 ml/m2 LA vol index: 40.1 ml/m2 IVC diam: 1.4 cm RVD1 (basal): 3.9 cm TAPSE: 1.5 cm Doppler Measurements & Calculations Ao V2 max: 114.5 cm/sec LVOT Max Farzad: 62.8 cm/sec Ao V2 mean: 79.2 cm/sec LV V1 max P.6 mmHg Ao max P.2 mmHg LV V1 VTI: 13.7 cm Ao mean P.9 mmHg PANKAJ(I,D): 2.6 cm2 Ao V2 VTI: 27.1 cm PANKAJ(V,D): 2.8 cm2 sev ratio: 0.51 PANKAJ indexed to BSA (cm^2/m^2): 1.2 MV E max farzad: 44.8 cm/sec PA V2 max: 77.1 cm/sec MV A max farzad: 107.7 cm/sec PA V2 mean: 54.3 cm/sec MV E/A: 0.42 PA mean P.4 mmHg Med Peak E' Farzad: 4.2 cm/sec PA pr(Accel): 17.3 mmHg E/E' med: 10.7 Lat Peak E' Farzad: 6.1 cm/sec E/E' lat: 7.4 E/e' average: 9.0 MV dec time: 0.31 sec SV(LVOT): 71.3 ml Reading Physician:09:55 AM
--- NOTE | 2021-10-26 15:13 | PM.TREADMILL ---
Cardiac Stress Test Report Referral & Results Indication: CAD Rest ECst degree AV block; LBBB Procedure Note: lexiscan myocardial perfusion stress test Impression: after lexiscan injection, patient had minimal dyspnea and no chest discomfort. baselike ecg LBBB with nonspecific ST changes, 1st degree av block, no significant st changes on ecg after lexiscan injection. occassional PVCs noted. no reversal agents needed. LIOR [place]. Please note: Actual ECG tracings can be found in the PACS system.
== END ==
PROVIDERS: PCP Internal Medicine; Referring Provider Internal Medicine Cardiovascular Disease; Visit Provider Internal Medicine Cardiovascular Disease
DX: I25.10 Atherosclerotic heart disease of native coronary artery without angina pectoris (principal); I10 Essential (primary) hypertension; I44.7 Left bundle-branch block, unspecified; I44.0 Atrioventricular block, first degree; I51.7 Cardiomegaly
CPT/HCPCS: 78452; 93016; 93017; 93018; 93306; A9502; Q9957

== ENCOUNTER → 2021-11-29 07:00 | Outpatient (CLI) | payer MEDICARE, OTHER, SELFPAY ==
[2021-11-29 08:14] LABS: Add Manual Diff / Slide Review NO; Basophils Absolute Auto 0 /uL (0-100); Basophils Percent Auto 0.6 % (0-2); Eosinophils Absolute Auto 300 /uL (0-450); Eosinophils Percent Auto 3.6 % (2-4); Hematocrit 45.8 % (41-53); Hemoglobin 15.9 g/dL (13.5-17.5); Lymphocytes Absolute Auto 1500 /uL (1100-4500); Lymphocytes Percent Auto 19.1 % (25-40); Mean Corpuscular HGB Conc 34.7 % (30-36); Mean Corpuscular Hemoglobin 29.6 PG (26-34); Mean Corpuscular Volume 85.3 fL (80-100); Monocytes Absolute Auto 800 /uL (0-900); Monocytes Percent Auto 10.5 % (3-14); Neutrophils Absolute Auto 5200 /uL (1500-7000); Neutrophils Percent Auto 66.2 % (50-75); Platelet Count 125 X10^3/uL (150-400); Red Blood Cell Count 5.36 X10^6/uL (4.5-5.9); Red Cell Distribution Width 13.9 % (11.6-14.8); White Blood Cell Count 7.8 X10^3/uL (4.5-11.0)
[2021-11-29 08:30] LABS: Alanine Aminotransferase 39 IU/L (<50); Albumin 4.5 g/dL (3.5-5.0); Albumin Globulin Ratio 1.4 (1.0-2.8); Alkaline Phosphatase 54 U/L (38-126); Aspartate Aminotransferase 39 IU/L (17-59); BUN Creatinine Ratio 21.2 (6-22); Bilirubin Total 1.1 mg/dL (0.2-1.3); Blood Urea Nitrogen 22 mg/dL (9-20); Calcium 9.2 mg/dL (8.4-10.2); Carbon Dioxide 25 mmol/L (22-32); Chloride 106 mmol/L (98-107); Cholesterol 126 mg/dL (140-199); Estimated Glomerular Filt Rate > 60 mL/min (>60); Globulin 3.2 g/dL (1.7-4.1); Glucose 129 mg/dL (80-110); HDL Cholesterol 45 mg/dL (40-60); HEMOLYSIS < 15 (0-50); LDL Cholesterol Calculated 48 mg/dL (<100); Potassium 4.6 mmol/L (3.4-5.1); Sodium 140 mmol/L (137-145); Total Protein 7.7 g/dL (6.3-8.2); Triglycerides 164 mg/dL (35-150)
[2021-11-29 08:43] LABS: Free T4, Direct Thyroxine 1.87 ng/dL (0.78-2.19)
[2021-11-29 08:57] LABS: Thyroid Stimulating Hormone 1.89 uIU/mL (0.47-4.68)
== END ==
PROVIDERS: PCP Internal Medicine; Referring Provider Internal Medicine Cardiovascular Disease; Visit Provider Internal Medicine Cardiovascular Disease
DX: I25.10 Atherosclerotic heart disease of native coronary artery without angina pectoris (principal); I10 Essential (primary) hypertension; E78.5 Hyperlipidemia, unspecified; Z13.29 Encounter for screening for other suspected endocrine disorder
CPT/HCPCS: 36415; 80053; 80061; 84439; 84443; 85025

== ENCOUNTER → 2022-01-24 09:31 | Outpatient (CLI) | payer MEDICARE, OTHER, SELFPAY ==
[2022-01-24 10:56] LABS: Hemoglobin A1C% w Est Avg Glu 6.1 % (4.0-6.0)
== END ==
PROVIDERS: PCP Internal Medicine; Referring Provider Internal Medicine; Visit Provider Internal Medicine
DX: R73.9 Hyperglycemia, unspecified (principal)
CPT/HCPCS: 36415; 83036

== ENCOUNTER → 2022-09-22 06:57 | Outpatient (CLI) | payer MEDICARE, OTHER, SELFPAY ==
[2022-09-22 07:40] LABS: Add Manual Diff / Slide Review NO; Basophils Absolute Auto 100 /uL (0-100); Basophils Percent Auto 0.8 % (0-2); Eosinophils Absolute Auto 300 /uL (0-450); Eosinophils Percent Auto 4.1 % (2-4); Hematocrit 46.5 % (41-53); Hemoglobin 15.8 g/dL (13.5-17.5); Lymphocytes Absolute Auto 1700 /uL (1100-4500); Lymphocytes Percent Auto 23.5 % (25-40); Mean Corpuscular HGB Conc 33.9 % (30-36); Mean Corpuscular Volume 85.6 fL (80-100); Monocytes Absolute Auto 800 /uL (0-900); Neutrophils Absolute Auto 4500 /uL (1500-7000); Neutrophils Percent Auto 60.6 % (50-75); Platelet Count 178 X10^3/uL (150-400); Red Blood Cell Count 5.43 X10^6/uL (4.5-5.9); Red Cell Distribution Width 13.8 % (11.6-14.8); White Blood Cell Count 7.4 X10^3/uL (4.5-11.0)
[2022-09-22 07:51] LABS: Hemoglobin A1C% w Est Avg Glu 6.3 % (4.0-6.0)
[2022-09-22 08:11] LABS: Alanine Aminotransferase 42 IU/L (<50); Albumin 4.3 g/dL (3.5-5.0); Albumin Globulin Ratio 1.2 (1.0-2.8); Alkaline Phosphatase 64 U/L (38-126); Aspartate Aminotransferase 39 IU/L (17-59); BUN Creatinine Ratio 24.5 (6-22); Bilirubin Total 1.4 mg/dL (0.2-1.3); Blood Urea Nitrogen 23 mg/dL (9-20); Calcium 9.3 mg/dL (8.4-10.2); Carbon Dioxide 24 mmol/L (22-32); Chloride 102 mmol/L (98-107); Cholesterol 131 mg/dL (140-199); Estimated Glomerular Filt Rate > 60 mL/min (>60); Globulin 3.7 g/dL (1.7-4.1); Glucose 136 mg/dL (80-110); HDL Cholesterol 41 mg/dL (40-60); HEMOLYSIS < 15 (0-50); LDL Cholesterol Calculated 53 mg/dL (<100); Potassium 4.4 mmol/L (3.4-5.1); Sodium 139 mmol/L (137-145); Triglycerides 184 mg/dL (35-150)
== END ==
PROVIDERS: PCP Internal Medicine; Referring Provider Internal Medicine; Visit Provider Internal Medicine
DX: C83.30 Diffuse large B-cell lymphoma, unspecified site (principal); R73.9 Hyperglycemia, unspecified; I10 Essential (primary) hypertension; I25.10 Atherosclerotic heart disease of native coronary artery without angina pectoris; I25.5 Ischemic cardiomyopathy; J44.9 Chronic obstructive pulmonary disease, unspecified
CPT/HCPCS: 36415; 80053; 80061; 83036; 85025

== ENCOUNTER → 2023-02-08 09:59 | Outpatient (CLI) | payer MEDICARE, OTHER, SELFPAY ==
[2023-02-08 10:42] LABS: Add Manual Diff / Slide Review NO; Basophils Absolute Auto 0 /uL (0-100); Basophils Percent Auto 0.4 % (0-2); Eosinophils Absolute Auto 200 /uL (0-450); Eosinophils Percent Auto 2.4 % (2-4); Hematocrit 45.2 % (41-53); Hemoglobin 15.6 g/dL (13.5-17.5); Lymphocytes Absolute Auto 1800 /uL (1100-4500); Lymphocytes Percent Auto 18.3 % (25-40); Mean Corpuscular HGB Conc 34.4 % (30-36); Mean Corpuscular Hemoglobin 29.4 PG (26-34); Mean Corpuscular Volume 85.4 fL (80-100); Monocytes Absolute Auto 1400 /uL (0-900); Monocytes Percent Auto 14.8 % (3-14); Neutrophils Absolute Auto 6100 /uL (1500-7000); Neutrophils Percent Auto 64.1 % (50-75); Platelet Count 155 X10^3/uL (150-400); Red Blood Cell Count 5.29 X10^6/uL (4.5-5.9); White Blood Cell Count 9.6 X10^3/uL (4.5-11.0)
[2023-02-08 11:01] LABS: Alanine Aminotransferase 29 IU/L (<50); Albumin 3.9 g/dL (3.5-5.0); Albumin Globulin Ratio 1.2 (1.0-2.8); Alkaline Phosphatase 55 U/L (38-126); Aspartate Aminotransferase 27 IU/L (17-59); BUN Creatinine Ratio 19.5 (6-22); Bilirubin Total 1.5 mg/dL (0.2-1.3); Blood Urea Nitrogen 34 mg/dL (9-20); Calcium 9.3 mg/dL (8.4-10.2); Carbon Dioxide 21 mmol/L (22-32); Chloride 103 mmol/L (98-107); Cholesterol 117 mg/dL (140-199); Estimated Glomerular Filt Rate 39 mL/min (>60); Globulin 3.3 g/dL (1.7-4.1); Glucose 130 mg/dL (80-110); HDL Cholesterol 44 mg/dL (40-60); HEMOLYSIS < 15 (0-50); LDL Cholesterol Calculated 44 mg/dL (<100); Potassium 4.4 mmol/L (3.4-5.1); Sodium 135 mmol/L (137-145); Total Protein 7.2 g/dL (6.3-8.2); Triglycerides 146 mg/dL (35-150)
[2023-02-08 11:13] LABS: Free T4, Direct Thyroxine 1.61 ng/dL (0.78-2.19)
[2023-02-08 11:28] LABS: Thyroid Stimulating Hormone 1.06 uIU/mL (0.47-4.68)
[2023-02-08 12:25] LABS: Appearance Urine UA SL CLOUDY; Bilirubin Urine UA 1+ (NEGATIVE); Color Urine UA YELLOW; Glucose Urine UA NEGATIVE (Negative); Ketones Urine UA NEGATIVE (NEGATIVE); Leukocyte Esterase Urine UA 2+ (NEGATIVE); Nitrite Urine UA NEGATIVE (Negative); Occult Blood Urine UA 3+ (Negative); Protein Urine UA 1+ (Negative); Urobilinogen Urine UA 0.2 E.U./dL (0.2); pH Urine UA 5.5 (4.5-8.0)
[2023-02-08 12:39] LABS: Ictotest Urine Negative (Negative); RBC Urine 10-30/HPF (0-5/HPF)
[2023-02-08 12:40] LABS: Bacteria Urine Moderate (10-30); Culture Indicated Urine Specimen Cultured; Squamous Epithelial Cell Urine 1-5 /HPF (0-5/HPF); WBC Urine 10-30/HPF (0-5/HPF)
== END ==
PROVIDERS: PCP Internal Medicine; Referring Provider Internal Medicine; Visit Provider Internal Medicine
DX: C83.30 Diffuse large B-cell lymphoma, unspecified site (principal); E03.9 Hypothyroidism, unspecified; E78.00 Pure hypercholesterolemia, unspecified; I10 Essential (primary) hypertension; N23 Unspecified renal colic; R35.0 Frequency of micturition
CPT/HCPCS: 36415; 80053; 80061; 81001; 84439; 84443; 85025; 87086

== ENCOUNTER → 2023-02-12 09:52 | Outpatient (CLI) | payer MEDICARE, OTHER, SELFPAY ==
--- NOTE | 2023-02-12 09:53 | DI.CT.S_ITS ---
PROCEDURE: CT KIDNEY URETER BLADDER (KUB) INDICATIONS: left flank pain TECHNIQUE: Axial sections were acquired from the lung bases to the pubic symphysis. Coronal and sagittal reformats were performed. For radiation dose reduction, the following was used: automated exposure control, adjustment of mA and/or kV according to patient size. COMPARISON: [facility], CT, CT CHEST W CON, 03/06/2018, 8:03. [facility], CT, CT CHEST WO CON, 10/28/2018, 11:07. CT, CHEST/ABDOMEN WITHOUT CONTRAST, 11/19/2017, 14:15. FINDINGS: Image quality: Excellent. Lung bases: There are 2 small nodules in the right middle lobe measuring 4 mm and 5 mm (series 3 image 1 and 4). Both nodules are unchanged in size. Severe emphysema. There is a moderate-sized hiatal hernia. Heart: No significant findings. URINARY: Right Kidney: No stones or hydronephrosis. There is a 2.5 cm simple appearing cyst in the mid right kidney Right Ureter: No hydroureter. Left Kidney: No stones. Trace pelviectasis. A 1 cm rim calcified exophytic nodule is seen in the mid left kidney. A 0.8 cm calcified nodule is seen in mid left kidney. Left Ureter: No hydroureter. There is mild periureteral stranding in proximal left ureter. Bladder: Normal wall thickness. No stones. ABDOMEN: Liver: Unremarkable. Gallbladder: There are gallstones. Biliary ducts: Unremarkable. Pancreas: Unremarkable. Spleen: Unremarkable. Adrenal Glands: Unremarkable. Stomach and Bowel: Stomach, small bowel loops, and colon are unremarkable. Diverticulosis without acute diverticulitis. Peritoneum: No abnormal intraperitoneal fluid. No free air. Ventral Wall: No hernia. Abdominal Nodes: No enlarged retroperitoneal or mesenteric lymph nodes. Vessels: Aorta and inferior vena cava are normal in size. Moderate to severe atherosclerosis. PELVIS: Pelvic Organs: Prostate is enlarged. Pelvic Nodes: Unremarkable. Miscellaneous: Small fat containing left inguinal hernia is seen. Bones: Severe degenerative disc and facet disease in lower lumbar spine. IMPRESSION: 1. No renal stones. There is trace left renal pelviectasis and mild proximal periureteral stranding. 2. A rim calcified nodule and a hyperdense nodule in left kidney. Both are indeterminate. Recommend renal protocol MRI or CT for further evaluation. 3. A 2.5 cm simple appearing cyst in right kidney. 4. Mild periureteral stranding in proximal left ureter. 5. Enlarged prostate. 6. Cholelithiasis. 7. Diverticulosis without acute diverticulitis. 8. Moderate-sized hiatal hernia. 9. Stable right middle lung nodules. 10. Severe emphysema. Dictated by: Yumi Prescott M.D. on 02/12/2023 at 17:14 Approved by: Yumi Prescott M.D. on 02/12/2023 at 18:53
== END ==
PROVIDERS: PCP Internal Medicine; Referring Provider Internal Medicine; Visit Provider Internal Medicine
DX: N28.1 Cyst of kidney, acquired (principal); K80.20 Calculus of gallbladder without cholecystitis without obstruction; N40.0 Benign prostatic hyperplasia without lower urinary tract symptoms; K57.90 Diverticulosis of intestine, part unspecified, without perforation or abscess without bleeding; K44.9 Diaphragmatic hernia without obstruction or gangrene; R91.8 Other nonspecific abnormal finding of lung field; J43.9 Emphysema, unspecified
CPT/HCPCS: 74176

== ENCOUNTER → 2023-02-16 13:37 | Outpatient (CLI) | payer MEDICARE, OTHER, SELFPAY ==
--- NOTE | 2023-02-16 13:39 | DI.MRI.S_ITS ---
PROCEDURE: MR ABDOMEN WO/W CON INDICATIONS: left renal mass on CT KUB TECHNIQUE: Coronal HASTE through abdomen and pelvis; axial 2D FLASH in- and [id number] (with and without fat saturation), and breath-hold T2 FSE from the hepatic dome to the bottom of the kidneys. Coronal HASTE MR urogram of kidneys and bladder. Dynamic coronal VIBE during IV gadolinium administration; postgadolinium axial VIBE or 2D FLASH with fat saturation from the hepatic dome through the kidneys. COMPARISON: , CT, CT KIDNEY URETER BLADDER (KUB), 02/12/2023, 10:07. FINDINGS: Image quality: Excellent. Genitourinary system: On the lateral margin of the left kidney, there are a pair of T2 hypointense, T1 hyperintense lesions without definitive enhancement, measuring 0.9 centimeter (series 6, image 29 and 1 centimeter (series 6, image 30). Additional T2 hyperintense renal cysts without internal complexity. Liver: No solid mass. Gallbladder and biliary tree: Cholelithiasis without wall thickening or adjacent fat stranding to suggest acute cholecystitis. No evidence of choledocholithiasis. Spleen: Normal size. Pancreas: No ductal dilation. Adrenal glands: No adrenal nodules. . Nodes and vessels: No retroperitoneal adenopathy. No infrarenal aortic aneurysm. Bowel and peritoneum: Unremarkable. Lung bases: Small hiatal hernia. Bones and soft tissues: No aggressive osseous abnormality. IMPRESSION: A pair of T2 hypointense, T1 hyperintense cystic lesions along the lateral margin of the left kidney have imaging characteristics favoring benign proteinaceous/hemorrhagic cysts. Consider 12 month follow-up MRI or CT (renal mass protocol) to ensure no interval change. Dictated by: Reynaldo Rai M.D. on 02/19/2023 at 12:19 Approved by: Reynaldo Rai M.D. on 02/19/2023 at 12:24
== END ==
PROVIDERS: PCP Internal Medicine; Referring Provider Internal Medicine; Visit Provider Internal Medicine
DX: N28.89 Other specified disorders of kidney and ureter (principal); K80.20 Calculus of gallbladder without cholecystitis without obstruction; K44.9 Diaphragmatic hernia without obstruction or gangrene
CPT/HCPCS: 74183; A9579

== ENCOUNTER → 2023-03-05 06:34 | Outpatient (CLI) | payer MEDICARE, OTHER, SELFPAY ==
[2023-03-05 07:42] LABS: BUN Creatinine Ratio 21.6 (6-22); Blood Urea Nitrogen 21 mg/dL (9-20); Carbon Dioxide 23 mmol/L (22-32); Chloride 105 mmol/L (98-107); Estimated Glomerular Filt Rate > 60 mL/min (>60); Glucose 128 mg/dL (80-110); HEMOLYSIS < 15 (0-50); Potassium 4.4 mmol/L (3.4-5.1); Sodium 139 mmol/L (137-145)
== END ==
PROVIDERS: PCP Internal Medicine; Referring Provider Internal Medicine; Visit Provider Internal Medicine
DX: N17.9 Acute kidney failure, unspecified (principal)
CPT/HCPCS: 36415; 80048

== ENCOUNTER → 2023-11-06 16:24 | Outpatient (CLI) | payer MEDICARE, OTHER, SELFPAY ==
[2023-11-06 16:51] LABS: Add Manual Diff / Slide Review NO; Basophils Absolute Auto 100 /uL (0-100); Basophils Percent Auto 0.8 % (0-2); Eosinophils Absolute Auto 300 /uL (0-450); Eosinophils Percent Auto 4.5 % (2-4); Hematocrit 47.5 % (41-53); Hemoglobin 16.1 g/dL (13.5-17.5); Lymphocytes Absolute Auto 1900 /uL (1100-4500); Lymphocytes Percent Auto 24.2 % (25-40); Mean Corpuscular HGB Conc 33.8 % (30-36); Mean Corpuscular Hemoglobin 29.4 PG (26-34); Mean Corpuscular Volume 87.1 fL (80-100); Monocytes Absolute Auto 900 /uL (0-900); Monocytes Percent Auto 11.3 % (3-14); Neutrophils Absolute Auto 4600 /uL (1500-7000); Neutrophils Percent Auto 59.2 % (50-75); Platelet Count 180 X10^3/uL (150-400); Red Blood Cell Count 5.46 X10^6/uL (4.5-5.9); Red Cell Distribution Width 13.4 % (11.6-14.8); White Blood Cell Count 7.7 X10^3/uL (4.5-11.0)
[2023-11-06 17:04] LABS: Alanine Aminotransferase 48 IU/L (<50); Albumin 4.5 g/dL (3.5-5.0); Albumin Globulin Ratio 1.2 (1.0-2.8); Alkaline Phosphatase 54 U/L (38-126); Aspartate Aminotransferase 44 IU/L (17-59); BUN Creatinine Ratio 35.1 (6-22); Blood Urea Nitrogen 33 mg/dL (9-20); Calcium 9.6 mg/dL (8.4-10.2); Carbon Dioxide 23 mmol/L (22-32); Chloride 109 mmol/L (98-107); Estimated Glomerular Filt Rate > 60 mL/min (>60); Globulin 3.7 g/dL (1.7-4.1); Glucose 109 mg/dL (80-110); HEMOLYSIS < 15 (0-50); Potassium 4.5 mmol/L (3.4-5.1); Sodium 139 mmol/L (137-145); Total Protein 8.2 g/dL (6.3-8.2)
[2023-11-06 17:07] LABS: Hemoglobin A1C% w Est Avg Glu 6.2 % (4.0-6.0)
[2023-11-06 17:14] LABS: Erythrocyte Sedimentation Rate 8 MM/HR (0-15)
[2023-11-06 17:21] LABS: Free T4, Direct Thyroxine 1.62 ng/dL (0.78-2.19)
[2023-11-06 17:35] LABS: Thyroid Stimulating Hormone 0.193 uIU/mL (0.47-4.68)
== END ==
PROVIDERS: PCP Internal Medicine; Referring Provider Internal Medicine; Visit Provider Internal Medicine
DX: R73.02 Impaired glucose tolerance (oral) (principal); I10 Essential (primary) hypertension; I25.5 Ischemic cardiomyopathy; C83.30 Diffuse large B-cell lymphoma, unspecified site; E03.9 Hypothyroidism, unspecified
CPT/HCPCS: 36415; 80053; 83036; 84439; 84443; 85025; 85651

== ENCOUNTER → 2023-11-14 15:04 | Outpatient (CLI) | payer MEDICARE, OTHER, SELFPAY | LOC: CAR 15:05 | PROVIDERS: PCP Internal Medicine; Referring Provider Internal Medicine; Visit Provider Internal Medicine | DX: R42 Dizziness and giddiness (principal) | CPT/HCPCS: 93246 ==

== ENCOUNTER → 2024-01-23 07:47 | Outpatient (CLI) | payer MEDICARE, OTHER, SELFPAY ==
[2024-01-23 09:07] LABS: Estimated Glomerular Filt Rate > 60 mL/min (>60)
--- NOTE | 2024-01-23 10:00 | DI.CT.S_ITS ---
PROCEDURE: CT ABDOMEN RENAL PROTOCOL INDICATIONS: Follow Up Renal Cyst TECHNIQUE: Optional 5 mm thick noncontrast images acquired from the diaphragm to the iliac crests. After the administration of intravenous contrast, 5 mm thick images again acquired from the diaphragm to the iliac crests in the arterial and urographic phases. 5 mm thick coronal and sagittal reformats were then acquired. For radiation dose reduction, the following was used: automated exposure control, adjustment of mA and/or kV according to patient size. COMPARISON: None available. FINDINGS: Image quality: Diagnostic. Kidneys and Ureters: No hydronephrosis. Small nonobstructing left kidney stone measuring 0.8 cm. Measures 406 Hounsfield units. No solid mass. Several small low-density renal cysts bilaterally. Left kidney inferior pole exophytic cyst measuring 1 cm, (2/36). Rim calcification. No suspicious enhancement. OTHER: Lower chest: Severe emphysematous change. Small hiatal hernia. Liver: No solid mass. Gallbladder: Gallstone measuring 1.5 cm. Biliary ducts: No biliary dilation. Pancreas: No ductal dilation. Spleen: Size is within normal limits. Adrenal Glands: No adrenal nodules. Stomach and Bowel: Normal colonic caliber, without significant wall thickening. Diverticulosis. Peritoneum: No abnormal intraperitoneal fluid. No free air. Ventral Wall: No hernia. Abdominal Nodes: No retroperitoneal or mesenteric adenopathy by size criteria. Vessels: Aorta and inferior vena cava are normal in size. Circumferential calcified atherosclerotic plaque. Bones: No aggressive osseous abnormality. Multilevel DDD. IMPRESSION: 1. No solid renal mass or suspicious enhancement. Mildly complicated cyst at the inferior pole the left kidney measuring 1 cm. 2. Nonobstructing left kidney stone. No hydronephrosis. 3. Gallstone. Dictated by: Nathanael Ramon M.D. on 01/23/2024 at 10:40 Approved by: Nathanael Ramon M.D. on 01/23/2024 at 10:51
== END ==
PROVIDERS: Radiology Diagnostic Radiology; PCP Internal Medicine; Referring Provider Internal Medicine; Visit Provider Internal Medicine
DX: C83.30 Diffuse large B-cell lymphoma, unspecified site (principal); N28.1 Cyst of kidney, acquired; N20.0 Calculus of kidney; K80.20 Calculus of gallbladder without cholecystitis without obstruction; K44.9 Diaphragmatic hernia without obstruction or gangrene
CPT/HCPCS: 36415; 74170; 82565; Q9967

== ENCOUNTER → 2024-05-15 06:37 | Outpatient (CLI) | payer MEDICARE, OTHER, SELFPAY ==
[2024-05-15 08:07] LABS: Hematocrit 47.4 % (41-53); Hemoglobin 16.3 g/dL (13.5-17.5); Mean Corpuscular HGB Conc 34.4 % (30-36); Mean Corpuscular Hemoglobin 29.8 PG (26-34); Mean Corpuscular Volume 86.7 fL (80-100); Platelet Count 153 X10^3/uL (150-400); Red Blood Cell Count 5.47 X10^6/uL (4.5-5.9); Red Cell Distribution Width 13.5 % (11.6-14.8); White Blood Cell Count 6.9 X10^3/uL (4.5-11.0)
[2024-05-15 08:45] LABS: Alanine Aminotransferase 38 IU/L (<50); Albumin 4.5 g/dL (3.5-5.0); Albumin Globulin Ratio 1.5 (1.0-2.8); Alkaline Phosphatase 64 U/L (38-126); Aspartate Aminotransferase 41 IU/L (17-59); BUN Creatinine Ratio 21.3 (6-22); Bilirubin Total 1.4 mg/dL (0.2-1.3); Blood Urea Nitrogen 23 mg/dL (9-20); Calcium 9.7 mg/dL (8.4-10.2); Carbon Dioxide 27 mmol/L (22-32); Chloride 104 mmol/L (98-107); Cholesterol 125 mg/dL (140-199); Estimated Glomerular Filt Rate > 60 mL/min (>60); Glucose 142 mg/dL (80-110); HDL Cholesterol 44 mg/dL (40-60); HEMOLYSIS < 15 (0-50); Potassium 4.7 mmol/L (3.4-5.1); Sodium 138 mmol/L (137-145); Total Protein 7.5 g/dL (6.3-8.2); Triglycerides 155 mg/dL (35-150)
[2024-05-15 08:46] LABS: LDL Cholesterol Calculated 50 mg/dL (<100)
[2024-05-15 08:52] LABS: Neutrophils Absolute Manual 4554 /uL (3000-5900); Total Cells Counted 100
[2024-05-15 08:53] LABS: RBC Morphology Normal Morphology
[2024-05-15 09:03] LABS: Free T4, Direct Thyroxine 1.62 ng/dL (0.78-2.19)
[2024-05-15 09:17] LABS: Thyroid Stimulating Hormone 0.115 uIU/mL (0.47-4.68)
== END ==
PROVIDERS: PCP Internal Medicine; Referring Provider Internal Medicine; Visit Provider Internal Medicine
DX: R73.02 Impaired glucose tolerance (oral) (principal); I10 Essential (primary) hypertension; C83.30 Diffuse large B-cell lymphoma, unspecified site; E03.9 Hypothyroidism, unspecified; E78.00 Pure hypercholesterolemia, unspecified
CPT/HCPCS: 36415; 80053; 80061; 83036; 84439; 84443; 85025

== ENCOUNTER → 2024-06-13 07:50 | Outpatient (CLI) | payer MEDICARE, OTHER, SELFPAY ==
[2024-06-18 14:11] LABS: ANA Screen, IFA Negative (.)
== END ==
PROVIDERS: PCP Internal Medicine; Referring Provider Dermatology; Visit Provider Dermatology
DX: R21 Rash and other nonspecific skin eruption (principal)
CPT/HCPCS: 36415; 86038

== ENCOUNTER → 2025-03-13 06:34 | Outpatient (CLI) | payer MEDICARE, OTHER, SELFPAY ==
[2025-03-13 07:53] LABS: Add Manual Diff / Slide Review NO; Hematocrit 46.5 % (41-53); Hemoglobin 16.2 g/dL (13.5-17.5); Lymphocytes Absolute Auto 1500 /uL (1100-4500); Mean Corpuscular HGB Conc 34.9 % (30-36); Mean Corpuscular Hemoglobin 29.9 PG (26-34); Mean Corpuscular Volume 85.7 fL (80-100); Platelet Count 148 X10^3/uL (150-400)
[2025-03-13 08:08] LABS: Alanine Aminotransferase 39 IU/L (<50); Albumin 4.3 g/dL (3.5-5.0); Albumin Globulin Ratio 1.3 (1.0-2.8); Alkaline Phosphatase 58 U/L (38-126); Blood Urea Nitrogen 20 mg/dL (9-20); Calcium 9.2 mg/dL (8.4-10.2); Carbon Dioxide 21 mmol/L (22-32); Chloride 108 mmol/L (98-107); Cholesterol 114 mg/dL (140-199); Estimated Glomerular Filt Rate > 60 mL/min (>60); Globulin 3.2 g/dL (1.7-4.1); Glucose 143 mg/dL (70-99); HDL Cholesterol 40 mg/dL (40-60); HEMOLYSIS < 15 (0-50); Potassium 4.3 mmol/L (3.4-5.1); Sodium 140 mmol/L (137-145); Total Protein 7.5 g/dL (6.3-8.2); Triglycerides 170 mg/dL (35-150)
[2025-03-13 08:22] LABS: Free T4, Direct Thyroxine 1.83 ng/dL (0.78-2.19)
[2025-03-13 08:36] LABS: Thyroid Stimulating Hormone 0.191 uIU/mL (0.47-4.68)
== END ==
PROVIDERS: PCP Internal Medicine; Referring Provider Internal Medicine; Visit Provider Internal Medicine
DX: I10 Essential (primary) hypertension (principal); E78.00 Pure hypercholesterolemia, unspecified; E03.9 Hypothyroidism, unspecified; I25.10 Atherosclerotic heart disease of native coronary artery without angina pectoris; R73.02 Impaired glucose tolerance (oral); C83.30 Diffuse large B-cell lymphoma, unspecified site
CPT/HCPCS: 36415; 80053; 80061; 84439; 84443; 85025